=== PATIENT | female | born 1970 | race Two or more races ===

== ENCOUNTER 2021-07-29 21:24 | Emergency (ER) | payer OTHER ==
[~2021-07-29] VITALS: Ht 157.5 cm; Wt 64.4 kg
--- NOTE | 2021-07-29 21:45 | NUR ---
ADAM C/O RIGHT INDEX TOE PAIN S/P "HITTING IT ON LOWER PART OF COOKING WRENCH. (+) DISCOLORATION AT THE BOTTOM OF THE 2ND DIGIT OF RIGHT FOOT.
--- NOTE | 2021-07-29 22:35 | NUR ---
WRAPPING CHECKER AT PT'S BEDSIDE
--- NOTE | 2021-07-29 23:15 | NUR ---
Patient discharged to home in stable condition. Written and verbal after care instructions given. Patient verbalizes understanding of instruction.
[2021-07-29 23:17] VITALS: BP 128/74
== END 2021-07-30 00:12 | disposition home or self-care (01) ==
LOC: ER 21:29
DX: S92.534A Nondisplaced fracture of distal phalanx of right lesser toe(s), initial encounter for closed fracture (principal); E78.5 Hyperlipidemia, unspecified; K21.9 Gastro-esophageal reflux disease without esophagitis; Z86.73 Personal history of transient ischemic attack (TIA), and cerebral infarction without residual deficits; W22.8XXA Striking against or struck by other objects, initial encounter; Y93.89 Activity, other specified; Y92.89 Other specified places as the place of occurrence of the external cause; Y99.8 Other external cause status
CPT/HCPCS: 73660-TC

== ENCOUNTER 2024-02-13 18:30 | Emergency (ER) | payer OTHER ==
[~2024-02-13] VITALS: Ht 157.5 cm; Wt 66.2 kg
[2024-02-13 20:21] VITALS: BP 121/76; TEMP 98; O2SAT 99
== END 2024-02-13 20:21 ==
LOC: ER 18:38
DX: G89.29 Other chronic pain (principal); M25.562 Pain in left knee; K21.9 Gastro-esophageal reflux disease without esophagitis; Z86.73 Personal history of transient ischemic attack (TIA), and cerebral infarction without residual deficits